=== PATIENT | male | born 1970 | race Caucasian/White ===

== ENCOUNTER → 2017-12-21 13:54 | Outpatient (CLI) | payer OTHER, SELFPAY ==
[2017-12-21 16:04] LABS: Anion Gap 10 (5-15); BUN 14 mg/dL (7-18); BUN/Creat Ratio 16.4 RATIO (10-20); Calcium,Total 9.6 mg/dL (8.5-10.1); Chloride 102 mmol/L (98-107); Creatinine, Serum 0.86 mg/dL (0.70-1.30); EST Glomerular Filtration Rate 102 mL/min (>60); Est Glom Filt Rate - Afr Amer 123 mL/min (>60); Glucose 76 mg/dL (74-106); Potassium 3.7 mmol/L (3.5-5.1); Sodium Level 142 mmol/L (136-145)
== END ==
PROVIDERS: Family Provider Family Medicine; PCP Family Medicine; Visit Provider Family Medicine
DX: I10 Essential (primary) hypertension (principal)
CPT/HCPCS: 36415; 80048

== ENCOUNTER → 2018-01-26 07:11 | Outpatient (CLI) | payer OTHER, SELFPAY ==
[2018-01-26 07:37] LABS: Cholesterol 190 mg/dL (200); High Density Lipoprotein 46 mg/dL; Triglycerides 149 mg/dL; Very Low Density Lipoprotein 30 mg/dL (5-40)
== END ==
PROVIDERS: Family Provider Family Medicine; PCP Family Medicine; Visit Provider Family Medicine
DX: E78.5 Hyperlipidemia, unspecified (principal)
CPT/HCPCS: 80061

== ENCOUNTER → 2018-08-20 | Outpatient (CLI) | payer OTHER, SELFPAY ==
[2018-06-10 15:51] VITALS: BMI 29.9
[2018-08-20 10:13] LABS: Absolute Lymphocyte Count 2.25 X10^3/ul (0.83-4.51); Absolute Neutrophil Count 4.3 X10^3/uL (2.0-7.7); Basophil# 0.03 X10^3/uL; Basophil% 0.4 % (0-1); Eosinophil# 0.18 X10^3/uL; Eosinophils% 2.5 % (0-5); Hematocrit 44.3 % (40-54); Hemoglobin 15.2 g/dl (13.0-16.5); Lymphocyte # 2.25 X10^3/ul; Lymphocyte % 31.6 % (19-41); Mean Corp Hgb Conc 34.3 g/gl (32-36); Mean Corpuscular Hgb 30.6 pg (27.0-32.0); Mean Corpuscular Volume 89.3 fL (80-94); Mean Platelet Vol. 9.1 fl (6.2-12.0); Monocyte# 0.39 X10^3/uL; Monocyte% 5.5 % (0-10); Neutrophil # 4.27 X10^3/uL (2.7-7.7); Neutrophil % 59.9 % (47-70); Platelet Count 270 K/mm3 (150-450); RBC Distribution Width CV 12.9 % (11.6-14.6); RBC Distribution Width SD 41.6 fl (35.1-43.9); Red Blood Count 4.96 M/mm3 (4.6-6.2); White Blood Count 7.1 K/mm3 (4.4-11.0)
[2018-08-20 10:40] LABS: ALB/GLOB Ratio 1.4 RATIO (0.9-2.4); AST(SGOT) 29 U/L (15-37); Alanine Aminotransfer ALT/SGPT 57 U/L (16-61); Albumin, Serum 4.4 g/dL (3.2-5.0); Alkaline Phosphatase 81 U/L (45-117); Anion Gap 5 (5-15); BUN 16 mg/dL (7-18); BUN/Creat Ratio 17.9 RATIO (10-20); Bilirubin, Direct 0.11 mg/dL (0.00-0.30); Calcium,Total 9.2 mg/dL (8.5-10.1); Chloride 104 mmol/L (98-107); Cholesterol 208 mg/dL (200); Creatinine, Serum 0.89 mg/dL (0.70-1.30); EST Glomerular Filtration Rate 97 mL/min (>60); Est Glom Filt Rate - Afr Amer 117 mL/min (>60); Globulin 3.2 g/dL (2.2-4.2); Glucose 92 mg/dL (74-106); High Density Lipoprotein 48 mg/dL; LDH 175 U/L (87-241); Phosphorus 4.1 mg/dL (2.5-4.9); Potassium 4.1 mmol/L (3.5-5.1); Protein, Total 7.6 g/dL (6.4-8.2); Sodium Level 138 mmol/L (136-145); Triglycerides 53 mg/dL; Uric Acid 6.7 mg/dL (3.5-7.2); Very Low Density Lipoprotein 11 mg/dL (5-40)
[2018-08-20 14:23] LABS: Color, Urine Yellow (Yellow); Glucose, Dipstick Normal (Normal); Ketone-Dipstick Negative (Negative); Leukocyte Esterase-Dipstick Negative /ul (Negative); Nitrite-Dipstick Negative (Negative); Occult Blood-Urine Negative /ul (Negative); Protein-Dipstick Negative (Negative); Specific Gravity, Urine 1.015 (1.002-1.030); Urine Bilirubin Dipstick Negative (Negative); Urine Clarity Clear (Clear); Urine Urobilinogen Normal (Normal)
== END | disposition home or self-care (01) ==
LOC: LAB 09:59
PROVIDERS: Family Provider Family Medicine; PCP Family Medicine
DX: Z00.00 Encounter for general adult medical examination without abnormal findings (principal)

== ENCOUNTER 2018-12-01 16:03 | Emergency (ER) | payer OTHER, SELFPAY ==
[2018-09-22 17:37] VITALS: BMI 29.9
[2018-12-01 16:05] VITALS: BP 154/82; PULSE 74; RESP 16; TEMP 37.1; O2SAT 98; BMI 24.2
[2018-12-01 16:08] VITALS: RESP 16
--- NOTE | 2018-12-01 16:17 | RAD_ITS ---
STUDY: X-RAY - LEFT RADIUS AND ULNA REASON FOR EXAM: Male, 48 years old. Pain and swelling TECHNIQUE: 2 view(s) of the forearm. COMPARISON: None. FINDINGS: There is no demonstrated soft tissue swelling. Normal visualized radius. Normal visualized ulna. RAD/Forearm 2 Views IMPRESSION: Normal x-ray examination of the radius and ulna. Electronically Signed: Paul Urban MD at 16:34 EDT , Service support ,
--- NOTE | 2018-12-01 16:20 | ED.DCSUM_ITS ---
History of Present Illness Chief Complaint: Upper Extremity Injury Detail of Chief Complaint: Laceratio due to blunt trauma Informant: Patient Onset: Days Context: Sudden Onset Timing: Continuous Quality: Laceration with swelling and redness Location: Proximal lateral dorsal left forearm Current Severity: Mild Maximum Severity: Mild Worsened by: Infected wound Relieved by: Nothing Associated Symptoms: No associated symptoms Narrative: Patient is a 48-year-old [id number] male presents with laceration concern for infection proximal lateral dorsal left forearm that occurred Wednesday. He was playing with his dog. He fell onto exposed roots. He presents now because of redness, swelling and mild drainage. He denies fever, chills or night sweats. He denies a traumatic fever, murmur, SBE, being immune suppressed or drug use. He denies paresthesia, anesthesia motor weakness of his left upper extremity. Tetanus is unknown Prior similar symptoms: No Recent Illness/Hospitalization: No - Past Medical History (1) No significant past medical history Status: Acute Past Medical History - Allergies and Home Meds Allergies/Adverse Reactions: Allergies No Known Allergies Allergy (Verified 12/01/18 16:12) Primary Care Physician: Alfredo Tillman MD [Primary Care Provider] - Prior records reviewed: Yes Surgical History: no surgical history Lives: Spouse/ Significant Other, With Family Smoking Status: Never smoker Alcohol: Rare Drugs: None Review of Systems General: Denies: Chills, Fever, Malaise, Sweats Cardiovascular: Denies: Chest pain, Palpitations Respiratory: Denies: Dyspnea, Cough, Dyspnea on exertion Gastrointestinal: Denies: Nausea, Vomiting Musculoskeletal: Reports: Swelling, Extremity Pain. Denies: Myalgias, Arthralgias, Neck pain, Back pain Skin: Reports: Rash, Wounds. Denies: Abrasions Neurological: Denies: Weakness, Parasthesia, Numbness Hematologic: Denies: Easy bruising, Easy bleeding Allergy: Denies: Uticaria, Swelling of the mouth, Swelling of the tongue Physical Exam Vital Signs/Narrative: Vital Signs Temp Pulse Resp BP Pulse Ox 12/01/18 16:08 16 12/01/18 16:05 98.8 F 74 16 154/82 H 98 Inital Vital Signs reviewed: Yes General: Well nourished, Well developed, No Acute Distress Head: Normocephalic, Atraumatic Eyes: Perrl, EOMI. Negative for: Pale conjunctiva, Scleral icterus, - Neck: Supple, Nontender Cardiovascular: Regular rate, Regular rhythm, No murmurs, Normal S1, Normal S2 Respiratory: No distress, CTA bilaterally, Chest nontender Extremities: No edema, Tenderness - Proximal lateral left forearm. Negative for: Nontender Skin: Normal color, Rash, Trauma - Is a 3 cm laceration proximal lateral left forearm with surrounding erythema with induration and warmth. There is no fluctuance. Unable to express any fluid from wound. There is no epitrochlear or axillary lymphadenopathy.. Negative for: Cyanosis, Diaphoresis, Jaundice Neurological: Alert, Oriented x3, Cranial nerves II-XII grossly intact, Normal Strength, Normal Sensation Diagnostic/Tx/Re-eval Chest X-Ray - ED: 2 View, Read by ED Physician, - - Review x-ray of the left forearm reveals no evidence of foreign body or subcutaneous air. There is no evidence of fracture. There is no anterior posterior fat pad involving the el bow joint. - Medical Decision Making Story of trauma and exposed tree roots and debris x-ray was obtained to evaluate for retained foreign body. Patient was treated with doxycycline for streptococcal and staphylococcal coverage and tetanus was updated. There is no subcu air or retained foreign body patient was given a 7-day course of doxycycline and instructed to follow-up with his primary care physician for a wound check in 2 days or return to the ER if unable to be seen. He was told to return if symptoms got worse after 24 hours. ED Disposition - Plan for ED Patient: Disposition: Home or Assisted Living Diagnosis: Cellulitis of forearm, left, Laceration of forearm, left, complicated Instructions: LACERATION, Infected (Not Sutured), Cellulitis Prescriptions: Doxycycline 100 mg PO BID #14 cap Prescription Printed Referrals: Alfredo Tillman MD [Primary Care Provider] - 2 Days for wound check Additional Instructions: If you are unable to be seen in 2 days for wound reevaluation or your arm has not improved after 24/48 hours please return to the emergency department. Take antibiotics until gone.
[2018-12-01] MEDS: Doxycycline 100 MG CAPSULE PO (16:27)
[2018-12-01] MEDS: Diphth,Pertuss(Acell),Tet Vac 0.5 ML Vial IM (16:27)
== END 2018-12-01 16:58 | disposition home or self-care (01) ==
PROVIDERS: Emergency Provider Emergency Medicine; Family Provider Family Medicine; PCP Family Medicine
DX: S51.812A Laceration without foreign body of left forearm, initial encounter (principal); L03.114 Cellulitis of left upper limb; W19.XXXA Unspecified fall, initial encounter; Y93.9 Activity, unspecified; Y92.9 Unspecified place or not applicable
CPT/HCPCS: 73090; 90471; 90715; 99283

== ENCOUNTER 2019-01-24 16:00 | Outpatient (RCR) | payer OTHER, SELFPAY ==
[2018-04-04 12:32] VITALS: BMI 29.9
--- NOTE | 2018-04-19 19:52 | MASS.EVAL ---
Massage Therapy Evaluation: Initial Evaluation Date: 04/19/2018 SUBJECTIVE: Armando is a 47 year old male who was referred to the [facility] for a massotherapy evaluation by Dr. Tillman with the diagnosis of lumbago. Armando presents today with the symptoms of tension and pain in his low back. He also complains of neck tension and stiffness. Armando reports having a non-remarkable medical history. He reports having improved symptoms after resuming running and stretching. OBJECTIVE: Upon observation Armando has slight head forward in sitting and standing postures. After examination and palpation I found Armando to have high muscle tension with tenderness and myofascial restrictions in his sub occipitals, levator scapulae, trapezius, rhomboids, scalenes, and thoracic paraspinals. His QL?s, lumbar paraspinals, glute medius and minimus all were very tight with fascial restrictions, tender points and trigger points. The first treatment consisted of a one hour massage to his full body with myofascial release, muscle stripping, trigger point compression techniques, and cervical manual traction. ASSESSMENT: I feel that Armando is a good candidate for massotherapy at this time. He had a favorable response to the first treatment with reduction in his muscle aches, pain and tension. He also had improvement in his cervical flexibility and low back flexibility. PLAN: The plan of care was reviewed with the patient. The patient is to be seen on an as needed basis for a total of ten sessions with the recommendation of once every month for a one hour treatment.
--- NOTE | 2019-01-30 15:14 | MASS.DISCH ---
Massage Therapy Discharge Summary: Discharge Date: 01/30/2019 Armando was seen for a massotherapy evaluation on 04/19/2018 with the diagnosis of lumbago. He was treated with ten sessions of massage therapy consisting of deep pressure soft tissue techniques, myofascial release and trigger point compression to his cervical, thoracic, lower back, upper extremities, hips and lower extremities. Armando responded well to the therapy by reporting decreased tension and pain throughout his head, neck, shoulders, lower back and hips. His goals for therapy were met throughout the treatment sessions. At this time this patient is being discharged from our care at [facility] facility.
== END 2019-01-24 19:00 | disposition home or self-care (01) ==
LOC: MASS 16:00
PROVIDERS: Family Provider Family Medicine; PCP Family Medicine; Referring Provider Family Medicine; Visit Provider Family Medicine
DX: M54.5 Low back pain (principal)
CPT/HCPCS: 97124

== ENCOUNTER → 2019-10-30 13:22 | Outpatient (CLI) | payer OTHER, SELFPAY ==
[2019-10-30 13:20] VITALS: BMI 24.2
--- NOTE | 2019-10-30 13:23 | RAD_ITS ---
STUDY: X-RAY - LEFT SHOULDER REASON FOR EXAM: Male, 49 years old. PAIN AFTER GETTING A MASSAGE TECHNIQUE: Four view(s) of the shoulder. COMPARISON: None. FINDINGS: Normal glenohumeral articulation. Normal acromioclavicular joint. Normal acromion. Normal humeral head and visualized proximal humerus. The soft tissue structures are unremarkable. Normal visualized pulmonary apex. RAD/Shoulder min 2 Views IMPRESSION: Normal x-ray examination of the shoulder. Electronically Signed: Beto Dukes, at 13:42 EDT , Service support ,
== END ==
PROVIDERS: PCP Family Medicine; Referring Provider Physician Assistant; Visit Provider Physician Assistant
DX: S46.912A Strain of unspecified muscle, fascia and tendon at shoulder and upper arm level, left arm, initial encounter (principal)
CPT/HCPCS: 73030

== ENCOUNTER 2020-03-26 17:15 | Outpatient (RCR) | payer OTHER, SELFPAY ==
--- NOTE | 2019-05-09 20:01 | MASS.EVAL_ITS ---
Massage Therapy Evaluation: Initial Evaluation Date: 05/09/2019 SUBJECTIVE: Armando is a 48 year old male who was referred to the [facility] for a massotherapy evaluation by Dr. Tillman with the diagnosis of lumbago. Armando presents today with the symptoms of pain and tension in his neck, shoulders, back and hips. Armando reports that he has an unremarkable past medical history. He reports having minimal change in symptoms after stretching, strength and cardio exercise. OBJECTIVE: Upon observation Armando has some posture issues with his head and shoulders forward from the neutral position in sitting and standing. After examination and palpation I found Armando to have high muscle tension with tenderness and myofascial restrictions in his sub occipitals, levator scapulae, trapezius, rhomboids, scalenes, and paraspinals muscle group. His QL?s, lumbar paraspinals, piriformis, glute medius, glute minimus all had high tension with fascial restrictions and tender points. The first treatment consisted of a one hour massage to his upper body with myofascial release, muscle stripping, trigger point compression techniques. ASSESSMENT: I feel that Armando is a good candidate for massotherapy at this time. He had a favorable response to the first treatment with reduction in his muscle aches, pain and tension. He also had improvement in his cervical flexibility and low back flexibility. PLAN: The plan of care was reviewed with the patient. The patient is to be seen on an as needed basis for a total of ten sessions with the recommendation of once every month for a one hour treatment.
== END 2020-03-26 19:00 | disposition home or self-care (01) ==
LOC: MASS 17:15
PROVIDERS: Family Provider Family Medicine; PCP Family Medicine; Referring Provider Family Medicine; Visit Provider Family Medicine
DX: M54.5 Low back pain (principal)
CPT/HCPCS: 97124

== ENCOUNTER 2021-04-01 16:00 | Outpatient (RCR) | payer OTHER, SELFPAY ==
[2019-10-30 14:21] VITALS: BMI 24.2
--- NOTE | 2020-04-23 18:50 | MASS.EVAL ---
Massage Therapy Evaluation: Initial Evaluation Date: 04/23/2020 SUBJECTIVE: Armando is a 49 year old male who was referred to the [facility] facility for a massotherapy evaluation by Dr. Tillman with the diagnosis of lumbago. Armando presents today with the symptoms of pain and tension in his neck, shoulders, back, hips and hamstrings. Armando reports an unremarkable past medical history. He reports having minimal change in symptoms after his routine exercise stretching program. OBJECTIVE: Upon observation Armando has some posture issues with his head and shoulders forward from the neutral position in sitting and standing. After examination and palpation I found Armando to have high muscle tension with tenderness and myofascial restrictions in his sub occipitals, levator scapulae, trapezius, rhomboids, scalenes, and paraspinals muscle group. His QL?s, lumbar paraspinals, piriformis, glute medius, glute minimus and hamstrings all had high tension with fascial restrictions and tender points. The first treatment consisted of a one hour massage to his full body with myofascial release, muscle stripping, trigger point compression techniques. ASSESSMENT: I feel that Armando is a good candidate for massotherapy at this time. He had a favorable response to the first treatment with reduction in his muscle aches, pain and tension. He also had improvement in his cervical flexibility and low back flexibility. PLAN: The plan of care was reviewed with the patient. The patient is to be seen on an as needed basis for a total of ten sessions with the recommendation of once every month for a one hour treatment.
--- NOTE | 2021-01-15 16:12 | DS.PCM_ITS ---
Massage Therapy Discharge Summary: Discharge Date: 01/15/2021 Armando was seen for a massotherapy evaluation on 04/23/2020 with the diagnosis of lumbago. He was treated with ten sessions of massage therapy consisting of deep pressure soft tissue techniques, myofascial release and trigger point compression to his cervical, thoracic, lower back, lower extremities and hips. Armando responded well to the therapy by reporting decreased tension and pain throughout his neck, shoulders, lower back and hips. His goals for therapy were met throughout the treatment sessions. At this time this patient is being discharged from our care at [facility] facility.
== END 2021-04-01 19:00 | disposition home or self-care (01) ==
LOC: MASS 16:00
PROVIDERS: PCP Family Medicine; Visit Provider Family Medicine
DX: M54.50 Low back pain, unspecified (principal)
CPT/HCPCS: 97124

== ENCOUNTER → 2021-09-06 | Outpatient (CLI) | payer OTHER, SELFPAY ==
[2021-09-06 10:16] LABS: ALB/GLOB Ratio 1.2 RATIO (0.9-2.4); AST(SGOT) 24 U/L (15-37); Alanine Aminotransfer ALT/SGPT 50 U/L (16-61); Alkaline Phosphatase 73 U/L (45-117); Anion Gap 3 (5-15); BUN 12 mg/dL (7-18); BUN/Creat Ratio 15.4 RATIO (10-20); Calcium,Total 8.8 mg/dL (8.5-10.1); Chloride 104 mmol/L (98-107); Cholesterol 177 mg/dL (200); Creatinine, Serum 0.78 mg/dL (0.70-1.30); EST Glomerular Filtration Rate 111 mL/min (>60); Est Glom Filt Rate - Afr Amer 135 mL/min (>60); Globulin 3.2 g/dL (2.2-4.2); Glucose 96 mg/dL (74-106); High Density Lipoprotein 40 mg/dL; PSA,Total - Annual Screen 1.21 ng/mL (0.00-4.00); Potassium 3.7 mmol/L (3.5-5.1); Protein, Total 7.2 g/dL (6.4-8.2); Sodium Level 137 mmol/L (136-145); Triglycerides 131 mg/dL; Very Low Density Lipoprotein 26 mg/dL (5-40)
== END | disposition home or self-care (01) ==
LOC: LAB 09-08 20:23
PROVIDERS: PCP Family Medicine; Visit Provider Family Medicine
DX: I10 Essential (primary) hypertension (principal); Z12.5 Encounter for screening for malignant neoplasm of prostate; E78.5 Hyperlipidemia, unspecified
CPT/HCPCS: 36415; 80053; 80061; 84153; G0103

== ENCOUNTER → 2023-12-10 | Outpatient (CLI) | payer BC, SELFPAY ==
[2023-12-13 14:49] LABS: PSA,Total - Annual Screen 2.18 ng/mL (0.00-4.00)
== END | disposition home or self-care (01) ==
LOC: LAB 12-13 14:43
PROVIDERS: PCP Family Medicine; Visit Provider Family Medicine
DX: Z00.00 Encounter for general adult medical examination without abnormal findings (principal); R73.01 Impaired fasting glucose
CPT/HCPCS: 36415; 83036; 84153; G0103

== ENCOUNTER 2024-12-08 12:32 | Outpatient (CLI) | payer OTHER, SELFPAY ==
[2024-12-11 11:19] LABS: PSA,Total - Annual Screen 2.31 ng/mL (0.02-4.00)
== END 2024-12-08 23:59 | disposition home or self-care (01) ==
LOC: LAB 12-11 10:16
PROVIDERS: PCP Family Medicine; Visit Provider Family Medicine
DX: Z12.5 Encounter for screening for malignant neoplasm of prostate (principal)
CPT/HCPCS: 84153; G0103

== ENCOUNTER 2024-12-12 18:17 | Emergency (ER) | payer OTHER, SELFPAY ==
[2024-12-12 18:18] VITALS: BP 148/79; PULSE 94; RESP 16; TEMP 37.7; O2SAT 95; BMI 29.9
[2024-12-12 18:23] VITALS: BP 148/79; PULSE 94; RESP 16; TEMP 37.7; O2SAT 95
--- NOTE | 2024-12-12 19:11 | RAD_ITS ---
PROCEDURE: CHEST PA AND LATERAL 12/12/2024 REASON FOR EXAM: COUGH, FEVER TECHNIQUE: Procedure Code: RADCXR Modality: DX Procedure: CHEST PA AND LATERAL FINDINGS: The heart is normal size. Right lower lobe consolidation suspicious for pneumonia. No acute osseous abnormalities. RAD/Chest PA and Lateral IMPRESSION: Pneumonia. Reading Location: [id number]
[2024-12-12 20:18] VITALS: O2SAT 96
[2024-12-12] MEDS: AMOXICILLIN 500 MG CAPSULE 1000 MG PO (20:36)
--- NOTE | 2024-12-12 20:43 | EDS_ITS ---
HPI History of Present Illness Chief Complaint: General Illness [facility] Medical History (Updated 12/12/24 @ 20:[address] Vero Hdz, DO) Hypercholesteremia Hypertension Home Medications ?Medication ?Instructions ?Recorded ?Last Taken ?Type atorvastatin 20 mg tablet 20 mg PO DAILY 12/01/18 Unkn own History lisinopril 10 mg tablet 10 mg PO DAILY 12/01/18 Unkn own History multivitamin 1 ea PO DAILY 12/01/18 Unkno wn History amoxicillin 500 mg capsule 1,000 mg (2 x 500 mg) PO Q8 H 5 12/12/24 Unknown Rx days #15 caps azithromycin 250 mg tablet 250 mg PO DAILY #4 TABLETS 12/12/24 Unknown Rx Allergy/AdvReac Type Severity Reaction Status Date / Time No Known Allergies Allergy Verified 12/12/24 18:20 Social History Smoking Status: Never smoker alcohol intake: current alcohol intake frequency: a few times a week EXAM Physical Exam Const Vital Signs: 12/12/24 18:18 12/12/24 18:23 12/12/24 18:24 Temperature 100 F H 100 F H Temperature Source Oral Oral Pulse Rate 94 94 Respiratory Rate 16 16 Respiratory Effort Normal Respiratory Pattern Normal Blood Pressure 148/79 H 148/79 H Blood Pressure Mean 102 102 Pulse Ox 95 95 Oxygen Delivery Method Room Air Room Air MDM MDM Radiography Diagnostic Testing: Clinical Impression(s) from Imaging Studies Chest X-Ray 12/12/24 19:11 IMPRESSION: Pneumonia. Reading Location: [address] Discharge Plan Triage Chief Complaint: General Illness ED Provider: Vero Hdz Dx/Rx/DC Orders Clinical Impression: Right lower lobe pneumonia Instructions: ED Pneumonia (Adult) Prescriptions: New amoxicillin 500 mg capsule 1,000 mg PO Q8H 5 Days Qty: 15 0RF azithromycin 250 mg tablet
--- NOTE | 2024-12-12 20:43 | EX.ED.DYSGE1 ---
HPI History of Present Illness Chief Complaint: General Illness Narrative Narrative: Patient is a 54-year-old male with history of hypertension and hyperlipidemia presenting with little bit more than 24 hours of fever, dry nonproductive cough and generalized malaise. Has had fevers up to 103 pretty persistently. He has been alternating Tylenol at home and states after about 4 hours his symptoms will return. [place] and when he was walking out he started feel disoriented. States he got home and rested. He then had what he describes as cold, chills and shaking. Last had Tylenol 1000 mg around 4:30 PM. states she checked his pulse ox is 9091% at home. He has had 2 negative COVID test in this timeframe as well as a negative flu and AB test. 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 No other complaints or concerns at this time. Denies any chest pain, vomiting, diarrhea or rash. Denies any urinary symptoms. [facility] Medical History Hypercholesteremia Hypertension Home Medications ?Medication ?Instructions ?Recorded ?Last Taken ?Type atorvastatin 20 mg tablet 20 mg PO DAILY 12/01/18 Unknown History lisinopril 10 mg tablet 10 mg PO DAILY 12/01/18 Unknown History multivitamin 1 ea PO DAILY 12/01/18 Unknown History amoxicillin 500 mg capsule 1,000 mg (2 x 500 mg) PO Q8H 5 12/12/24 Unknown Rx days #15 caps azithromycin 250 mg tablet 250 mg PO DAILY #4 TABLETS 12/12/24 Unknown Rx Allergy/AdvReac Type Severity Reaction Status Date / Time No Known Allergies Allergy Verified 12/12/24 18:20 Social History Smoking Status: Never smoker alcohol intake: current alcohol intake frequency: a few times a week [facility] ED Constitutional Constitutional ED: Reports chills and fever(s) ENT ENT ED: Denies rhinorrhea or sore throat Cardiovascular Cardiovascular: Denies chest pain or palpitations Respiratory/Chest Respiratory/Chest: Reports cough; Denies dyspnea or sputum Gastrointestinal Gastrointestinal: Denies abdominal pain, diarrhea, nausea or vomiting Genitourinary Genitourinary ED: Denies dysuria or urinary frequency Musculoskeletal Musculoskeletal: Denies arthralgias or myalgias Integumentary Denies rash Neurologic Neurologic: Reports headache(s) and weakness Psychiatric Psychiatric: Denies anxiety Hematologic/Lymphatic Hematologic/Lymphatic: Denies easy bleeding or easy bruising EXAM Physical Exam Const Vital Signs: 12/12/24 18:18 12/12/24 18:23 12/12/24 18:24 Temperature 100 F H 100 F H Temperature Source Oral Oral Pulse Rate 94 94 Respiratory Rate 16 16 Respiratory Effort Normal Respiratory Pattern Normal Blood Pressure 148/79 H 148/79 H Blood Pressure Mean 102 102 Pulse Ox 95 95 Oxygen Delivery Method Room Air Room Air Positive well nourished and well developed General Appearance ED: well developed and NAD HEENT Reports TM's clear and moist mucous membranes HEENT Narrative: Mild injection of the posterior oropharynx. Uvula is midline. No trismus. Tympanic Membrane ED: Yes TM's clear bilateral (Bilateral partial cerumen occlusion of the TMs. Visualized TMs are normal.) Eyes PERRL and EOMs intact bilaterally General Eye ED: Negative for scleral icterus Neck no lymphadenopathy, supple and no JVD Chest Wall inspection of chest normal and palpation of chest normal Resp normal respiratory effort and clear to auscultation bilaterally Effort and Inspection: Negative for retractions Auscultation: Negative for rales, rhonchi, wheezes or diminished lung sounds Cardio regular rate, regular rhythm and no murmurs GI normal to inspection, nondistended, normoactive bowel sounds and non-tender Back/Spine no CVA tenderness Extremity normal to inspection General Extremety ED: Negative for edema or tenderness General Extremity: Negative for edema Neuro oriented x3 Sensorium / Orientation: alert Motor Exam: Negative for general weakness Psych mental status grossly normal Skin no rashes or lesions noted and no wounds MDM MDM MDM Narrative Medical decision making narrative: Patient is evaluated for fever and cough. Differential includes viral syndrome, pneumonia bronchitis. Patient has a low-grade temperature of 100 ?F in the emergency room and is 95% room air. While he reports high-grade fever he is overall quite well-appearing right now. Is amenable to chest x-ray and viral swab at this time. Chest x-ray viewed by myself as well as radiology does show a right lower lobe infiltrate. This is consistent with his clinical presentation. His COVID flu RSV PCR test is negative. Patient is ambulated emergency room and does not have any desaturation and tolerates this well. At this time I do think he be a good candidate for outpatient treatment. He started on high-dose amoxicillin and azithromycin. Given first dose in the emergency room. Counseled on return precautions. Counseled on alternate ibuprofen and Tylenol in the emergency room. Patient was given a dose of Motrin in the ER with some clinical improvement. Discharged home in stable and improved condition. Radiography Diagnostic Testing: Clinical Impression(s) from Imaging Studies Chest X-Ray 12/12/24 19:11 IMPRESSION: Pneumonia. Reading Location: [address] Discharge Plan Triage Chief Complaint: General Illness ED Provider: Vero Hdz Dx/Rx/DC Orders Clinical Impression: Right lower lobe pneumonia Instructions: ED Pneumonia (Adult) Prescriptions: New amoxicillin 500 mg capsule 1,000 mg PO Q8H 5 Days Qty: 15 0RF azithromycin 250 mg tablet 250 mg PO DAILY Qty: 4 0RF No Action multivitamin 1 EACH tablet 1 ea PO DAILY atorvastatin 20 MG tablet 20 mg PO DAILY lisinopril 10 MG tablet 10 mg PO DAILY Patient Comments: TAKE 1 TABLET BY MOUTH ONCE DAILY Primary Care Provider: Etienne Tillman Referrals: Etienne Tillman MD [Primary Care Provider] - Activity Restrictions/Additional Instructions: Your chest x-ray showed pneumonia. Alternate ibuprofen and Tylenol. Make sure you are drinking plenty of fluids. Take the entire course of antibiotics. You were given first dose of both the amoxicillin and the azithromycin in the emergency room. Your next dose is not due until tomorrow morning. You may also take Mucinex to help thin up secretions and help you cough things up. If you feel you are worsening despite the antibiotics please return to the emergency room. Otherwise please follow-up with your primary care doctor later this week or early next week. Print Language: Hungarian Disposition Disposition: Home, Self Care
[2024-12-12 20:58] VITALS: BP 148/79; PULSE 88; RESP 16; TEMP 37.7; O2SAT 97
== END 2024-12-12 20:59 | disposition home or self-care (01) ==
PROVIDERS: Emergency Provider Emergency Medicine; PCP Family Medicine; Visit Provider Emergency Medicine
DX: J18.9 Pneumonia, unspecified organism (principal); I10 Essential (primary) hypertension; E78.00 Pure hypercholesterolemia, unspecified; Z79.899 Other long term (current) drug therapy
CPT/HCPCS: 71046; 87631; 99282

== ENCOUNTER → 2025-01-17 | Outpatient (CLI) | payer SELFPAY ==
--- NOTE | 2025-01-17 16:01 | CT_ITS ---
PROCEDURE: LIMITED CHEST CT CARDIAC ONLY 01/17/2025 REASON FOR EXAM: HLIP, family history of coronary artery disease. Hypertension TECHNIQUE: Procedure Code: [id number] Modality: CT Procedure: LIMITED CHEST CT CARDIAC ONLY One or more dose reduction techniques were used (e.g., Automated exposure control, adjustment of the mA and/or kV according to patient size, use of iterative reconstruction technique). RADIATION DOSE SUMMARY: CTDlvol: 12.19 mGy DLP: 219.42 mGycm COMPARISON: PA and lateral chest 12/13/2019 CT/Limited Chest CT Cardiac Only IMPRESSION: Limited imaging of the lungs demonstrates no acute process. No pleural effusion or pneumothorax is seen in visualized areas. No adenopathy is noted. The visualized upper abdomen demonstrates no significant abnormality. Reading Location: [id number]
--- NOTE | 2025-01-17 17:39 | CA.SCORE ---
Calcium Scoring Date of Study:: 01/17/25 Indications Indications: FH Coronary Calcium Scoring: High-resolution Computed Tomographic imaging of the chest was performed on [01/17/25 ], with particular attention paid to the coronary arteries. Images from the examination were analyzed for the presence and extent of coronary artery calcification , using coronary calcium quantification software. The patient tolerated the procedure well and there were no complications. The results of the coronary calcification analysis are provided below. Findings Coronary Artery Left Main (LM): 0 Left Anterior Descending (LAD): 0 Left Circumflex (LCX): 1.1 Right Coronary Artery (RCA): 0 Total Agatston Score: 1.1 Percentile Rankin Calcium Scoring Interpretation: Different methods to categorize the overall amount of coronary plaque. Overall amount CAC SIS Visual of coronary plaque P1 Mild -100 <2 1-2 vessels with mild amount of plaque P2 Moderate 101-300 3-4 1-2 vessels with moderate amount, 3 vessels with mild amount of plaque P3 Severe 301-999 5-7 3 vessels with moderate amount, 1 vessel with severe amount of plaque P4 Extensive >1000 >8 2-3 vessels with severe amount of plaque Conclusion: Focal atherosclerotic plaque
== END | disposition home or self-care (01) ==
LOC: CT 16:00
PROVIDERS: PCP Family Medicine; Referring Provider Family Medicine; Visit Provider Family Medicine
DX: E78.5 Hyperlipidemia, unspecified (principal); Z82.49 Family history of ischemic heart disease and other diseases of the circulatory system
CPT/HCPCS: 75571; 76380